=== PATIENT | male | born 1970 | race Caucasian/White ===

== ENCOUNTER 2019-03-18 09:11 | Emergency (ER) | payer OTHER ==
[2019-03-18 10:31] LABS: Absolute Lymphocytes (CBC) 1.6 K/uL (0.7-4.9); Absolute Monocytes 0.5 K/uL (0.1-1.3); Absolute Neutrophil 2.9 K/uL (1.8-8.0); Basophils % 0.8 % (0-1.3); Eosinophils % 1.4 % (0-4.4); Lymphocytes % 30.7 % (15.3-44.8); MPV 9.5 fL (7.6-11.3); Monocytes % 10.1 % (3.3-12.3); RBC Red Blood Cell Count 4.66 M/uL (4.33-5.43)
[2019-03-18 10:41] LABS: Urine Blood NEGATIVE (NEG); Urine Glucose NEGATIVE (NEG); Urine Protein NEGATIVE (NEG)
[2019-03-18] MEDS ORDERED: CEFTRIAXONE/SWI 1gm 1 GM/10 ML SYR ONE (10:49)
[2019-03-18] MEDS ORDERED: NA CHLORIDE 0.9% 500 ML ONE (10:49)
[2019-03-18 10:50] LABS: Bilirubin Total 0.5 mg/dL (0.2-1.0); Potassium 4.2 mmol/L (3.5-5.1); Protein, Total 7.4 g/dL (6.4-8.2)
--- NOTE | 2019-03-18 11:44 | RAD REPORT ---
EXAM DESCRIPTION: CT - Abdomen Pelvis W Contrast - 03/18/2019 11:26 am CLINICAL HISTORY: Abdominal pain, flank pain COMPARISON: CT imaging November 2012 TECHNIQUE: Biphasic, helical CT imaging of the abdomen and pelvis was performed following 100 ml non -ionic IV contrast. No oral contrast administered. All CT scans are performed using dose optimization technique as appropriate and may include automated exposure control or mA/KV adjustment according to patient size. FINDINGS: No suspicious findings in the lung bases. Diffuse fatty infiltration of the liver is again noted. No suspicious liver parenchymal lesions seen. Spleen and pancreas show no acute findings or significant interval changes. Gallbladder and biliary tree are also without suspicious finding. Gallstones can be occult on CT imaging. Symmetric renal function is seen with no hydronephrosis or suspicious renal mass. No pyelonephritis o r acute parenchymal process. No bladder abnormalities. No adrenal abnormalities. No gastric dilatation or gastric wall thickening. No dilated large or small bowel. No appendicitis fi ndings. There is moderate retained stool volume throughout the colon. No acute GI process seen. No free air, free fluid or inflammatory stranding. No mass or bulky lymphadenopathy. Fat filled ri ght inguinal hernia present with no edema or congestion of the herniated fat. Fat extends into the or igin of the left inguinal canal. Hernia findings are stable. No suspicious bony findings. IMPRESSION: Diffuse fatty infiltration of the liver similar to comparison. Moderate stool volume throughout the colon with no acute GI process identifiable. No acute CT abdomen or pelvis finding. No focal abnormality to explain flank pain.
--- NOTE | 2019-03-18 13:02 | ER ---
Nurse's Notes [facility] Name: Clark Reyes Jr Age: 48 yrs Sex: Male : 1970 Arrival Date: 03/18/2019 Time: 09:15 Bed 24 Private MD: Ileana Fischer H Diagnosis: Dysuria;Constipation Presentation: 03/18 09:31 Presenting complaint: Patient states: back pian X 2 months, hx of kidney cysts, has iw been having difficulty urinating. Transition of care: patient was not received from another setting of care. Onset of symptoms was January 2019. Risk Assessment: Do you want to hurt yourself or someone else? Patient reports no desire to harm self or others. Initial Sepsis Screen: Does the patient meet any 2 criteria? No. Patient's initial sepsis screen is negative. Does the patient have a suspected source of infection? No. Patient's initial sepsis screen is negative. Care prior to arrival: None. 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 - Social history:: Smoking status: Patient/guardian denies using tobacco. - Ebola Screening: : Patient negative for fever greater than or equal to 101.5 degrees Fahrenheit, and additional compatible Ebola Virus Disease symptoms Patient denies travel to an Ebola-affected area in the 21 days before illness onset. - Family history:: not pertinent. Screenin:06 Abuse screen: Denies threats or abuse. Nutritional screening: No deficits noted. ae4 Tuberculosis screening: No symptoms or risk factors identified. Fall Risk None identified. Assessment: 10:00 General: Appears in no apparent distress. uncomfortable, Behavior is cooperative, ae4 anxious. Pain: Complains of pain in left low back, left mid back, right mid back and right low back Pain currently is 8 out of 10 on a pain scale. Quality of pain is described as burning. Neuro: Level of Consciousness is awake, alert, obeys commands, Oriented to person, place, time, situation, Appropriate for age. Cardiovascular: Heart tones S1 S2 present Patient's skin is warm and dry. Respiratory: Reports shortness of breath on exertion Airway is patent Respiratory effort is even, unlabored, Respiratory pattern is regular, Breath sounds are clear bilaterally. GI: No signs and/or symptoms were reported involving the gastrointestinal system. : Urine is clear, Reports burning with urination, inability to void, urgency, urinary frequency, blood in urine previously. : Reports Patient states he gets up multiple time at night to urinate with little relief, difficulty initiating urine flow. EENT: wears glasses. Derm: Skin is pale. Musculoskeletal: No signs and/or symptoms reported regarding the musculoskeletal system. 11:58 Reassessment: Patient appears in no apparent distress at this time. Patient and/or ae4 family updated on plan of care and expected duration. Pain level reassessed. 12:26 Reassessment: Patient appears in no apparent distress at this time. Patient and/or ae4 family updated on plan of care and expected duration. Pain level reassessed. Patient denies pain at this time. Vital Signs: 09:41 BP 128 / 87; Pulse 70; Resp 19; Temp 98.4; Pulse Ox 98% on R/A; ae4 10:06 Weight 85.73 kg (R); ae4 10:34 BP 128 / 94; Pulse 62; Resp 14; Pulse Ox 98% on R/A; ae4 11:57 BP 116 / 75; Pulse 61; Resp 16; Pulse Ox 100% on R/A; ae4 12:26 BP 116 / 79; Pulse 62; Resp 15; Pulse Ox 98% on R/A; ae4 ED Course: 09:15 Patient arrived in ED. ag5 09:16 Ileana Fischer DO is Private Physician. ag5 09:31 Padilla Thomson, JAKE is Primary Nurse. ae4 09:34 Triage completed. iw 09:44 Eddie Jacobson MD is Attending Physician. yonis 09:44 Alvin Jaramillo PA is [facility]. jmm 10:00 Placed in gown. Bed in low position. Call light in reach. Side rails up X 1. Adult w/ ae4 patient. conveyor monitor on. Pulse ox on. NIBP on. Warm blanket given. 10:00 Bladder scan completed. 71 mls remaining in bladder. ae4 10:07 Arm band placed on right wrist. ae4 10:31 Inserted saline lock: 20 gauge in right antecubital area, using aseptic technique. ae4 Blood collected. 11:48 Ileana Fischer DO is Referral Physician. yonis 11:48 Fermín Higgins MD is Referral Physician. yonis 12:41 No provider procedures requiring assistance completed. IV discontinued, intact, ae4 bleeding controlled, No redness/swelling at site. Pressure dressing applied. 13:05 CT Abd/Pelvis - IV Contrast Only: renal program In Process Unspecified. EDMS Administered Medications: 10:33 Drug: NS 0.9% 500 ml Route: IV; Rate: bolus; Site: right antecubital; ae4 11:30 Follow up: IV Status: Completed infusion ae4 10:34 Drug: Rocephin - (cefTRIAXone) 1 grams Route: IVPB; Infused Over: 30 mins; Site: right ae4 antecubital; 12:42 Follow up: IV Status: Completed infusion ae4 Outcome: 11:48 Discharge ordered by . yonis 12:41 Discharged to home ambulatory, with significant other. ae4 12:41 Condition: stable 12:41 Discharge instructions given to patient, Instructed on discharge instructions, follow up and referral plans. medication usage, Demonstrated understanding of instructions, Prescriptions given X 3. 12:42 Patient left the ED. ae4 Signatures: Dispatcher [employer] EDMS Eddie Jacobson MD MD cha Mickail, Joel, PA PA jmm Williams, Irene, RN Kayleigh Guzman [facility] Padilla Thomson RN RN ae4
--- NOTE | 2019-03-18 13:02 | EDPHYS ---
Physician Documentation [facility] Name: Clark Reyes Jr Age: 48 yrs Sex: Male : 1970 Arrival Date: 03/18/2019 Time: 09:15 Bed 24 Private MD: Ileana Fischer H ED Physician Eddie Jacobson HPI: 03/18 10:17 This 48 yrs old Male presents to ER via Ambulatory with complaints of Low yonis Back Pain, Urinary Problem. 10:17 The patient presents with pain that is acute, with no known mechanism of injury. The yonis symptoms are located in the low back, left low back, left mid back, right mid back and right low back. The pain does not radiate. The problem was sustained from unknown cause. Onset: The symptoms/episode began/occurred 3 day(s) ago. Modifying factors: The patient symptoms are alleviated by nothing, the patient symptoms are aggravated by any movement. Associated signs and symptoms: The patient has no apparent associated signs or symptoms. Severity of symptoms: At their worst the symptoms were. The patient has experienced similar episodes in the past, a few times. Historical: - Allergies: 09:59 No Known Allergies; ae4 - Home Meds: :59 Valium Oral [Active]; Baclofen Oral [Active]; Tylenol #4 Oral [Active]; ae4 - PMHx: :59 masses found on kidneys; neuropathy; ae4 - Immunization history:: Adult Immunizations up to date, Flu vaccine is not up to date. - Social history:: Smoking status: Patient/guardian denies using tobacco. - Ebola Screening: : Patient negative for fever greater than or equal to 101.5 degrees Fahrenheit, and additional compatible Ebola Virus Disease symptoms Patient denies travel to an Ebola-affected area in the 21 days before illness onset. - Family history:: not pertinent. ROS: 10:17 Constitutional: Negative for fever, chills, and weight loss, Eyes: Negative for injury, yonis pain, redness, and discharge, ENT: Negative for injury, pain, and discharge, Neck: Negative for injury, pain, and swelling, Cardiovascular: Negative for chest pain, palpitations, and edema, Respiratory: Negative for shortness of breath, cough, wheezing, and pleuritic chest pain, Abdomen/GI: Negative for abdominal pain, nausea, vomiting, diarrhea, and constipation, MS/Extremity: Negative for injury and deformity, Skin: Negative for injury, rash, and discoloration, Neuro: Negative for headache, weakness, numbness, tingling, and seizure, Psych: Negative for depression, anxiety, suicide ideation, homicidal ideation, and hallucinations, Allergy/Immunology: Negative for hives, rash, and allergies, Endocrine: Negative for neck swelling, polydipsia, polyuria, polyphagia, and marked weight changes, Hematologic/Lymphatic: Negative for swollen nodes, abnormal bleeding, and unusual bruising. 10:17 Back: Positive for pain at rest, flank pain, bilaterally. 10:17 : Positive for urinary symptoms, urinary frequency, small amounts, burning with urination. Exam: 10:17 Constitutional: This is a well developed, well nourished patient who is awake, alert, yonis and in no acute distress. Head/Face: Normocephalic, atraumatic. Eyes: Pupils equal round and reactive to light, extra-ocular motions intact. Lids and lashes normal. Conjunctiva and sclera are non-icteric and not injected. Cornea within normal limits. Periorbital areas with no swelling, redness, or edema. ENT: Nares patent. No nasal discharge, no septal abnormalities noted. Tympanic membranes are normal and external auditory canals are clear. Oropharynx with no redness, swelling, or masses, exudates, or evidence of obstruction, uvula midline. Mucous membranes moist. Neck: Trachea midline, no thyromegaly or masses palpated, and no cervical lymphadenopathy. Supple, full range of motion without nuchal rigidity, or vertebral point tenderness. No Meningismus. Chest/axilla: Normal chest wall appearance and motion. Nontender with no deformity. No lesions are appreciated. Cardiovascular: Regular rate and rhythm with a normal S1 and S2. No gallops, murmurs, or rubs. Normal PMI, no JVD. No pulse deficits. Respiratory: Lungs have equal breath sounds bilaterally, clear to auscultation and percussion. No rales, rhonchi or wheezes noted. No increased work of breathing, no retractions or nasal flaring. Abdomen/GI: Soft, non-tender, with normal bowel sounds. No distension or tympany. No guarding or rebound. No evidence of tenderness throughout. Back: No spinal tenderness. No costovertebral tenderness. Full range of motion. Male : Normal genitalia with no discharge or lesions. Skin: Warm, dry with normal turgor. Normal color with no rashes, no lesions, and no evidence of cellulitis. MS/ Extremity: Pulses equal, no cyanosis. Neurovascular intact. Full, normal range of motion. Neuro: Awake and alert, GCS 15, oriented to person, place, time, and situation. Cranial nerves II-XII grossly intact. Motor strength 5/5 in all extremities. Sensory grossly intact. Cerebellar exam normal. Normal gait. Psych: Awake, alert, with orientation to person, place and time. Behavior, mood, and affect are within normal limits. Vital Signs: 09:41 BP 128 / 87; Pulse 70; Resp 19; Temp 98.4; Pulse Ox 98% on R/A; ae4 10:06 Weight 85.73 kg (R); ae4 10:34 BP 128 / 94; Pulse 62; Resp 14; Pulse Ox 98% on R/A; ae4 11:57 BP 116 / 75; Pulse 61; Resp 16; Pulse Ox 100% on R/A; ae4 12:26 BP 116 / 79; Pulse 62; Resp 15; Pulse Ox 98% on R/A; ae4 MDM: 09:44 Patient medically screened. [facility] 10:51 Data reviewed: vital signs, nurses notes, lab test result(s), radiologic studies, CT [facility] scan. 03/18 09:59 Order name: Urine Dipstick--Ancillary (enter results); Complete Time: 11:41 03/18 10:17 Order name: CBC with Diff [facility] 03/18 10:17 Order name: Comprehensive Metabolic Panel [facility] 03/18 10:17 Order name: CT Abd/Pelvis - IV Contrast Only: renal program [facility] 03/18 10:17 Order name: Urine Culture [facility] 03/18 10:51 Order name: Urine Dipstick-Ancillary (obtain specimen); Complete Time: 11:[address] [facility] Administered Medications: 10:33 Drug: NS 0.9% 500 ml Route: IV; Rate: bolus; Site: right antecubital; ae4 11:30 Follow up: IV Status: Completed infusion ae4 10:34 Drug: Rocephin - (cefTRIAXone) 1 grams Route: IVPB; Infused Over: 30 mins; Site: right ae4 antecubital; 12:42 Follow up: IV Status: Completed infusion ae4 Disposition: 03/18/19 11:48 Discharged to Home. Impression: Dysuria, Constipation. - Condition is Stable. - Discharge Instructions: Constipation, Adult, Dysuria, Constipation, Adult, [id number]. - Prescriptions for Flomax 0.4 mg Oral Capsule, Sust. Release 24 hr - take 1 capsule by ORAL route once daily 1/2 hour following the same meal each day; 20 capsule. Cipro 500 mg Oral Tablet - take 1 tablet by ORAL route every 12 hours for 10 days; 20 tablet. Miralax 17 gram/dose Oral - take 1 packet by ORAL route every 12 hours dilute powder in 8 ounces of water or juice; 20 packet. - Medication Reconciliation Form, Thank You Letter, Antibiotic Education, Prescription Opioid Use form. - Follow up: Ileana Fischer; When: 2 - 3 days; Reason: Recheck today's complaints, Continuance of care, Re-evaluation by your physician. Follow up: Fermín Higgins; When: 2 - 3 days; Reason: Recheck today's complaints, Continuance of care, Re-evaluation by your physician. - Problem is new. - Symptoms have improved. Signatures: Dispatcher [employer] EDMS Eddie Jacobson MD MD cha Elliott, Andrea RN RN ae4 Corrections: (The following items were deleted from the chart) 12:42 11:48 03/18/2019 11:48 Discharged to Home. Impression: Dysuria; Constipation. Condition ae4 is Stable. Discharge Instructions: Dysuria. Prescriptions for Flomax 0.4 mg Oral Capsule, Sust. Release 24 hr - take 1 capsule by ORAL route once daily 1/2 hour following the same meal each day; 20 capsule, Cipro 500 mg Oral Tablet - take 1 tablet by ORAL route every 12 hours for 10 days; 20 tablet. and Forms are Medication Reconciliation Form, Thank You Letter, Antibiotic Education, Prescription Opioid Use. Follow up: Ileana Fischer; When: 2 - 3 days; Reason: Recheck today's complaints, Continuance of care, Re-evaluation by your physician. Follow up: Fermín Higgins; When: 2 - 3 days; Reason: Recheck today's complaints, Continuance of care, Re-evaluation by your physician. Problem is new. Symptoms have improved. yonis
[2019-03-18 18:47] VITALS: BP 116/79; O2SAT 98
[2019-03-18 19:03] VITALS: TEMP 98.7
== END 2019-03-18 12:42 | disposition home or self-care (01) ==
LOC: ER 09:11
DX: K59.00 Constipation, unspecified (principal)
CPT/HCPCS: 36415; 74177; 80053; 81003; 85025; 87086; 87088; 96365; 96366; 99284; J0696; Q9967

== ENCOUNTER 2020-04-06 08:49 | Day surgery (SDC) | payer BC ==
--- NOTE | 2020-04-03 13:43 | RAD REPORT ---
EXAM DESCRIPTION: Queta Mccain (2 Views)04/03/2020 1:21 pm CLINICAL HISTORY: Chest pain COMPARISON: 2014 FINDINGS: The lungs appear clear of acute infiltrate. The heart is normal size IMPRESSION: No acute abnormalities displayed
[2020-04-03 14:03] LABS: Potassium 4.4 mmol/L (3.5-5.1)
[2020-04-03 14:11] LABS: Absolute Lymphocytes (CBC) 1.6 K/uL (0.7-4.9); Basophils % 0.6 % (0-1.3); Hematocrit 39.1 % (39.6-49.0); Lymphocytes % 27.8 % (15.3-44.8); MPV 10.3 fL (7.6-11.3); RBC Red Blood Cell Count 4.37 M/uL (4.33-5.43)
[2020-04-03 14:20] LABS: Protime INR 0.97
[2020-04-06] MEDS ORDERED: NA CHLORIDE 0.9% 500 ML ONE (09:01)
[2020-04-06] MEDS ORDERED: HEPA 1000U/500MLS 2,000 UNIT/1,000 ML BAG IV ONE (10:52)
[2020-04-06] MEDS ORDERED: HEPARIN 5000 UNIT/ML 1 ML VIAL ONE (10:54)
[2020-04-06] MEDS ORDERED: FENTANYL CITR 100 MCG/2 ML ONE (10:55)
[2020-04-06] MEDS ORDERED: NICARDIPINE HCL 25 MG/10 ML IV ONE (10:55)
[2020-04-06] MEDS ORDERED: ATROPINE SULF 1 MG/10 ML SYR IV ONE (10:55)
[2020-04-06] MEDS ORDERED: MIDAZOLAM HCL 2 MG/2 ML INJ ONE ×2 (10:55→11:36)
[2020-04-06 13:04] VITALS: O2SAT 99
[2020-04-06 13:44] VITALS: BP 120/68; TEMP 97.5
--- NOTE | 2020-04-06 22:50 | OP ---
Date of Procedure: 04/06/2020 Surgeon: RAJNI ABDALLA Procedure Performed: Selective coronary angiogram. Access: Right radial artery 6-Monegasque closed with TR band. Indications: Unstable angina. Total Sedation Time: 15 minutes. Complications: None. Bleeding: Less than 5 mL. Description Of Procedure: After risks, benefits, and alternatives were explained to the patient, efren rey signed informed consent and was brought into the cardiac catheterization laboratory, prepped and draped in usual sterile fashion. We used fentanyl and Versed in incremental doses to achieve adequa te moderate sedation. Then, we used the pediatric micropuncture kit to access right radial artery an d then inserted a 6-Monegasque slender sheath. Subsequently, we took a 5-Monegasque Worley catheter into the aortic root over the J-wire, engaged the left main coronary artery, took standard views and then enga ged the right coronary artery with the same catheter and took standard views. Then, we took a cathet er and wire out and the sheath was removed. TR band was placed with good hemostasis. Findings: Normal coronary arteries. No coronary artery disease was found. Recommendations: 1.Cardiac risk factor modification and management. 2.Discharge home once discharge criteria is met. SR/MODL Voice ID: [id number] Report ID: [id number]
== END 2020-04-06 13:56 | disposition home or self-care (01) ==
LOC: CCL 08:49
PROVIDERS: ATTEND Internal Medicine
DX: I20.0 Unstable angina (principal); R06.00 Dyspnea, unspecified; J45.909 Unspecified asthma, uncomplicated; Z88.6 Allergy status to analgesic agent; Z82.49 Family history of ischemic heart disease and other diseases of the circulatory system; Z11.59 Encounter for screening for other viral diseases
CPT/HCPCS: 85025; 80048; 36415; 85610; 85730; 71046; 93454; U0002; C1893; J1644; J2250 ×2; J3010; J7040

== ENCOUNTER 2020-10-28 00:56 | Emergency (ER) | payer BC ==
--- NOTE | 2020-10-28 02:40 | ER ---
Nurse's Notes [facility] Name: Clark Reyes Jr Age: 50 yrs Sex: Male : 1970 Arrival Date: 10/28/2020 Time: 01:01 Bed 16 Private MD: Ileana Fischer H Diagnosis: Muscle spasm of back Presentation: 10/28 01:10 Chief complaint: Patient states: back pain for 3 days now. I've been tested positive rr5 for COVID last 08-19-20 then 3 weeks ago my covid test result was negative. I went to [facility] they said I have pneumonia antibiotic and steroid prescribed and finish the course. but after that i feel so bad after 2 days.denies cough or fever. 01:10 Coronavirus screen: Client denies travel out of the [place] in the last 14 days. shortness rr5 of breath, Client presents with at least one sign or symptom that may indicate coronavirus-19. Standard/surgical mask placed on the client. Provider contacted for isolation considerations. Ebola Screen: Patient negative for fever greater than or equal to 101.5 degrees Fahrenheit, and additional compatible Ebola Virus Disease symptoms Patient denies exposure to infectious person. Patient denies travel to an Ebola-affected area in the 21 days before illness onset. Initial Sepsis Screen: Does the patient meet any 2 criteria? HR > 90 bpm. Does the patient have a suspected source of infection? Yes: Productive cough/pneumonia. Risk Assessment: Do you want to hurt yourself or someone else? Patient reports no desire to harm self or others. Onset of symptoms was October 25, 2020. 01:10 Method Of Arrival: Ambulatory rr5 01:10 Acuity: ANH 3 rr5 Triage Assessment: 01:10 Respiratory: Reports pain at the back the patient has mild shortness of breath. rr5 Historical: - Allergies: 01:18 No Known Allergies; rr5 - Home Meds: 01:18 Baclofen Oral [Active]; rr5 - PMHx: 01:18 masses found on kidneys; neuropathy; rr5 01:18 covid; rr5 - PSHx: 01:18 None; rr5 - Immunization history:: Adult Immunizations up to date. - Social history:: Smoking status: unknown Patient/guardian denies using alcohol, street drugs, tobacco products. - Family history:: not pertinent. Screenin:19 Abuse screen: Denies threats or abuse. Denies injuries from another. Nutritional rr5 screening: No deficits noted. Tuberculosis screening: No symptoms or risk factors identified. Fall Risk None identified. Total Mcdonald Fall Scale indicates No Risk (0-24 pts). Assessment: 01:10 General: Appears in no apparent distress. uncomfortable, Behavior is calm, cooperative, rr5 agitated. Pain: Complains of pain in back Pain currently is 8 out of 10 on a pain scale. Quality of pain is described as stabbing, Pain began gradually, Is intermittent. Neuro: Level of Consciousness is awake, alert, obeys commands, Oriented to person, place, time. Cardiovascular: Capillary refill < 3 seconds Patient's skin is warm and dry. Rhythm is. Respiratory: Airway is patent Respiratory effort is even, unlabored, Respiratory pattern is regular, symmetrical, GI: Abdomen is round. : No signs and/or symptoms were reported regarding the genitourinary system. EENT: No signs and/or symptoms were reported regarding the EENT system. Derm: Skin is intact, is healthy with good turgor, Skin temperature is warm. Musculoskeletal: Circulation, motion, and sensation intact. Capillary refill < 3 seconds. 02:05 Reassessment: Patient appears in no apparent distress at this time. Patient is alert, rr5 oriented x 3, equal unlabored respirations, skin warm/dry/pink. 02:45 Reassessment: Patient appears in no apparent distress at this time. Patient is alert, rr5 oriented x 3, equal unlabored respirations, skin warm/dry/pink. discharge instruction given and explained without complaints made. Vital Signs: 01:10 BP 139 / 96; Pulse 103; Resp 19; Temp 98.7; Pulse Ox 98% ; Weight 81.65 kg; Height 5 rr5 ft. 4 in. (162.56 cm); Pain 8/10; 02:05 BP 131 / 85; Pulse 88; Resp 16; Pulse Ox 98% ; rr5 01:10 Body Mass Index 30.90 (81.65 kg, 162.56 cm) rr5 ED Course: 01:01 Patient arrived in ED. am2 01:02 Ileana Fischer DO is Private Physician. am2 01:09 Ricky Cunha MD is Attending Physician. ma2 01:13 Sekou Oviedo, RN is Primary Nurse. rr5 01:18 Triage completed. rr5 01:19 Arm band placed on right wrist. rr5 01:19 Patient has correct armband on for positive identification. Placed in gown. Bed in low rr5 position. Call light in reach. Pulse ox on. NIBP on. 01:55 X-ray(s) taken. rr5 02:02 COVID swab sent to lab. rr5 02:11 Chest Single View XRAY In Process Unspecified. EDMS 02:46 No provider procedures requiring assistance completed. Patient did not have IV access rr5 during this emergency room visit. Administered Medications: No medications were administered Outcome: 02:40 Discharge ordered by . ma2 02:46 Discharged to home ambulatory. rr5 02:46 Condition: stable 02:46 Discharge instructions given to patient, Instructed on discharge instructions, follow up and referral plans. medication usage, Demonstrated understanding of instructions, follow-up care, medications, Prescriptions given X 1. 02:47 Patient left the ED. rr5 Addendum: 10/30/2020 09:26 Addendum: COVID-19 Result: Positive result giiven to ED physician to notify pt. s v Physician left voice mail for pt to call the ED back. 09:48 Addendum: COVID-19 Result: Positive result giiven to ED physician to notify pt. s v Physician: Delfino Ruff MD Physician was able to contact pt and pt was notified of positive COVID-19 swab result. Physician answered pt questions. Signatures: Dispatcher [employer] [facility] Edyta Jackson, RN Nicole Fontenot [facility] Ricky Cunha MD MD [facility] Sekou Oviedo, RN RN rr5
--- NOTE | 2020-10-28 02:40 | EDPHYS ---
Physician Documentation [facility] Name: Clark Reyes Jr Age: 50 yrs Sex: Male : 1970 Arrival Date: 10/28/2020 Time: 01:01 Bed 16 Private MD: Ileana Fischer H ED Physician Ricky Cunha HPI: 10/28 02:39 This 50 yrs old Male presents to ER via Ambulatory with complaints of ma2 Shortness Of Breath, Back Pain. 02:39 Onset: The symptoms/episode began/occurred gradually, 6 week(s) ago. Associated signs ma2 and symptoms: Pertinent positives: non-productive cough, Pertinent negatives: productive cough, dizziness, hemoptysis, loss of consciousness. Severity of symptoms: At their worst the symptoms were mild in the emergency department the symptoms are unchanged. The patient has experienced similar episodes in the past. has been diagnosed with covid. 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 - Social history:: Smoking status: unknown Patient/guardian denies using alcohol, street drugs, tobacco products. - Family history:: not pertinent. ROS: 02:39 Constitutional: Negative for fever, chills, and weight loss. ma2 02:39 All other systems are negative. Exam: 02:39 Constitutional: This is a well developed, well nourished patient who is awake, alert, ma2 and in no acute distress. Neck: Trachea midline, no thyromegaly or masses palpated, and no cervical lymphadenopathy. Supple, full range of motion without nuchal rigidity, or vertebral point tenderness. No Meningismus. Chest/axilla: Normal chest wall appearance and motion. Nontender with no deformity. No lesions are appreciated. Cardiovascular: Regular rate and rhythm with a normal S1 and S2. No gallops, murmurs, or rubs. Normal PMI, no JVD. No pulse deficits. Respiratory: Lungs have equal breath sounds bilaterally, clear to auscultation and percussion. No rales, rhonchi or wheezes noted. No increased work of breathing, no retractions or nasal flaring. Abdomen/GI: Soft, non-tender, with normal bowel sounds. No distension or tympany. No guarding or rebound. No evidence of tenderness throughout. Back: No spinal tenderness. No costovertebral tenderness. Full range of motion. MS/ Extremity: Pulses equal, no cyanosis. Neurovascular intact. Full, normal range of motion. Neuro: Awake and alert, GCS 15, oriented to person, place, time, and situation. Cranial nerves II-XII grossly intact. Motor strength 5/5 in all extremities. Sensory grossly intact. Cerebellar exam normal. Normal gait. Vital Signs: 01:10 BP 139 / 96; Pulse 103; Resp 19; Temp 98.7; Pulse Ox 98% ; Weight 81.65 kg; Height 5 rr5 ft. 4 in. (162.56 cm); Pain 8/10; 02:05 BP 131 / 85; Pulse 88; Resp 16; Pulse Ox 98% ; rr5 01:10 Body Mass Index 30.90 (81.65 kg, 162.56 cm) rr5 MDM: 01:09 Patient medically screened. ma2 02:39 Differential diagnosis: Bronchitis pneumonia, reactive airway disease. Data reviewed: ky2 vital signs, nurses notes. Counseling: I had a detailed discussion with the patient and/or guardian regarding: the historical points, exam findings, and any diagnostic results supporting the discharge/admit diagnosis, the presence of at least one elevated blood pressure reading (>120/80) during this emergency department visit, the need for outpatient follow up. 10/28 01:27 Order name: COVID-19 ky2 10/28 01:27 Order name: Chest Single View XRAY ky2 Administered Medications: No medications were administered Disposition: 10/28/20 02:40 Discharged to Home. Impression: Muscle spasm of back. - Condition is Stable. - Discharge Instructions: Muscle Cramps and Spasms. - Prescriptions for Cyclobenzaprine 10 mg Oral Tablet - take 1 tablet by ORAL route every 8 hours As needed; 30 tablet. - Medication Reconciliation Form, Thank You Letter, Antibiotic Education, Prescription Opioid Use form. - Follow up: Private Physician; When: Tomorrow; Reason: Continuance of care. Signatures: Dispatcher [employer] EDMS Adan Cunhad, MD MD ma2 Sekou Oviedo RN RN rr5 Corrections: (The following items were deleted from the chart) 02:47 02:40 10/28/2020 02:40 Discharged to Home. Impression: Muscle spasm of back. Condition rr5 is Stable. Forms are Medication Reconciliation Form, Thank You Letter, Antibiotic Education, Prescription Opioid Use. Follow up: Private Physician; When: Tomorrow; Reason: Continuance of care. collin
[2020-10-28 02:51] VITALS: TEMP 98.7; O2SAT 98
[2020-10-28 02:52] VITALS: BP 131/85
--- NOTE | 2020-10-28 08:14 | RAD REPORT ---
EXAM DESCRIPTION: Queta Single View10/28/2020 2:11 am CLINICAL HISTORY: Congestion COMPARISON: March 2020 FINDINGS: The lungs are mildly hazy. Heart is normal size IMPRESSION: Lungs are mildly hazy. It is uncertain whether this represents mild infiltrates or confl uence of normal structures/soft tissue. If clinically indicated further evaluation with PA and latera l chest series could be obtained
== END 2020-10-28 02:47 | disposition home or self-care (01) ==
LOC: ER 00:56
DX: U07.1 COVID-19 (principal); Z86.16 Personal history of COVID-19
CPT/HCPCS: 71045; 99283; U0002

== ENCOUNTER 2020-11-17 10:31 | Emergency (ER) | payer BC ==
[2020-11-17] MEDS ORDERED: IPRATROPIUM BROM 0.5MG/2.5ML ONE (11:25)
[2020-11-17] MEDS ORDERED: METHYLPREDNISOLONE 125 MG INJ ONE (11:25)
[2020-11-17] MEDS ORDERED: ALBUTEROL 2.5 MG/3 ML NEB SOL ONE (11:25)
[2020-11-17 11:26] LABS: Protime INR 0.95
[2020-11-17 11:28] LABS: Absolute Lymphocytes (CBC) 2.1 K/uL (0.7-4.9); Basophils % 1.3 % (0-1.3); Hematocrit 37.7 % (39.6-49.0); Lymphocytes % 33.1 % (15.3-44.8); MPV 9.5 fL (7.6-11.3); RBC Red Blood Cell Count 4.26 M/uL (4.33-5.43)
[2020-11-17 11:34] LABS: ALT/SGPT 41 U/L (12-78); AST/SGOT 24 U/L (15-37); Albumin 3.8 g/dL (3.4-5.0); Alkaline Phosphatase 65 U/L (45-117); BUN Blood Urea Nitrogen 16 mg/dL (7-18); Bicarbonate 26 mmol/L (21-32); Bilirubin Direct 0.1 mg/dL (0-0.2); Bilirubin Total 0.4 mg/dL (0.2-1.0); C-Reactive Protein 6.07 mg/L (<3.00); Ferritin 59.7 ng/mL (26-388); Glucose Level 106 mg/dL (74-106); Lipase 138 U/L (73-393); Potassium 3.9 mmol/L (3.5-5.1); Protein, Total 7.3 g/dL (6.4-8.2); Sodium Level 140 mmol/L (136-145); Troponin (Emerg Dept Use Only) < 0.02 ng/mL (0.0-0.045)
--- NOTE | 2020-11-17 11:54 | RAD REPORT ---
EXAM DESCRIPTION: Queta Single View11/17/2020 11:12 am CLINICAL HISTORY: Shortness of breath COMPARISON: October 2020 FINDINGS: Lungs are mildly hazy. The heart is normal size IMPRESSION: Lungs are mildly hazy probably a mild pneumonia
[2020-11-17 12:45] LABS: SARS-COV-2 RT PCR POSITIVE (NEGATIVE)
--- NOTE | 2020-11-17 13:27 | ER ---
Nurse's Notes [facility] Name: Clark Reyes Jr Age: 50 yrs Sex: Male : 1970 Arrival Date: 11/17/2020 Time: 10:34 Bed 13 Private MD: Ileana Fischer H Diagnosis: Pneumonia due to SARS-associated coronavirus Presentation: 11/17 10:42 Chief complaint: Patient states: "I was COVID + last month and still felling short of hb breath." Pt reports using albuterol every 30 mins and home O2 with no relief. Coronavirus screen: Client presents with at least one sign or symptom that may indicate coronavirus-19. Standard/surgical mask placed on the client. Provider contacted for isolation considerations. Ebola Screen: No symptoms or risks identified at this time. Initial Sepsis Screen: Does the patient meet any 2 criteria? RR > 20 per min. No. Patient's initial sepsis screen is negative. Does the patient have a suspected source of infection? No. Patient's initial sepsis screen is negative. Risk Assessment: Do you want to hurt yourself or someone else? Patient reports no desire to harm self or others. Onset of symptoms was November 17, 2020. 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 - Social history:: Smoking status: Patient denies any tobacco usage or history of. Screenin:45 Abuse screen: Denies threats or abuse. Denies injuries from another. Nutritional hb screening: No deficits noted. Tuberculosis screening: No symptoms or risk factors identified. Fall Risk None identified. Assessment: 11:05 General: Appears ill, Behavior is calm, cooperative, appropriate for age. Pain: Denies ll1 pain. Neuro: No deficits noted. Cardiovascular: No deficits noted. Respiratory: Reports shortness of breath cough that is Airway is patent Trachea midline Respiratory effort is even, labored, Respiratory pattern is symmetrical, tachypnea Breath sounds are coarse bilaterally. the patient has mild shortness of breath. GI: Abdomen is flat, Bowel sounds present X 4 quads. Abd is soft and non tender X 4 quads. Reports nausea. Musculoskeletal: Circulation, motion, and sensation intact. Capillary refill < 3 seconds, Range of motion: intact in all extremities, Reports body aches. 12:15 Reassessment: Patient appears in no apparent distress at this time. Patient and/or vg1 family updated on plan of care and expected duration. Pain level reassessed. Patient is alert, oriented x 3, equal unlabored respirations, skin warm/dry/pink. States back pain of 8/10. Stated feeling better after breathing treatment. Provider notified. Patient states feeling better. 13:18 Reassessment: Patient appears in no apparent distress at this time. Patient and/or vg1 family updated on plan of care and expected duration. Pain level reassessed. Patient is alert, oriented x 3, equal unlabored respirations, skin warm/dry/pink. 13:33 Reassessment: Patient up for d/c. Awaiting for providers disposition. vg1 Vital Signs: 10:42 BP 136 / 88; Pulse 87; Resp 36; Temp 98.5; Pulse Ox 100% on R/A; Pain 7/10; hb 11:01 Resp 26; ll1 12:16 BP 119 / 71; Pulse 87; Resp 18; Pulse Ox 100% on R/A; vg1 13:00 BP 118 / 82; Pulse 88; Resp 18; Pulse Ox 98% on R/A; vg1 ED Course: 10:34 Patient arrived in ED. ds1 10:34 Ileana Fischer DO is Private Physician. ds1 10:38 Arsen Dudley NP is PHCP. pm1 10:38 Eddie Jacobson MD is Attending Physician. pm1 10:44 Triage completed. hb 10:44 Arm band placed on. hb 10:45 Patient has correct armband on for positive identification. Bed in low position. Call hb light in reach. 10:47 Vanessa Real, JAKE is Primary Nurse. ll1 11:05 Inserted saline lock: 22 gauge in left antecubital area, using aseptic technique. Blood ll1 collected. 11:12 CXR XRAY In Process Unspecified. EDMS 12:00 EKG done, by ED staff, reviewed by Arsen Dudley NP. dh3 12:02 Primary Nurse role handed off by Vanessa Real RN vg1 12:02 Eloisa Osorio, RN is Primary Nurse. vg1 13:26 Ileana Fischer DO is Referral Physician. pm1 13:48 IV discontinued, intact, bleeding controlled, No redness/swelling at site. Pressure ll1 dressing applied. 13:53 No provider procedures requiring assistance completed. vg1 Administered Medications: 11:15 Drug: SOLU-Medrol 125 mg Route: IVP; Site: left antecubital; ll1 12:30 Follow up: Response: No adverse reaction vg1 11:18 Drug: Albuterol - atroVENT (3:1) (2.5 mg - 0.5 mg) 3 ml Route: Nebulizer; ll1 12:30 Follow up: Response: No adverse reaction vg1 Outcome: 13:26 Discharge ordered by MD. pm1 13:53 Discharged to home ambulatory. vg1 13:53 Condition: stable 13:53 Discharge instructions given to patient, Instructed on discharge instructions, follow up and referral plans. medication usage, Demonstrated understanding of instructions, follow-up care, medications, Prescriptions given X 3. 13:53 Patient left the ED. vg1 Signatures: Dispatcher [employer] EDOK KingShima ds1 Arsen Dudley NP [employer]ONSTRATOR [employer] pm1 Neli Dunn RN RN hb Herrera, Deanna [facility] Eloisa Osorio RN RN vg1 Vanessa Real RN RN 1
--- NOTE | 2020-11-17 13:27 | EDPHYS ---
Physician Documentation [facility] Name: Clark Reyes Jr Age: 50 yrs Sex: Male : 1970 Arrival Date: 11/17/2020 Time: 10:34 Bed 13 Private MD: Ileana Fischer H ED Physician Eddie Jacobson HPI: 11/17 10:52 This 50 yrs old Male presents to ER via Ambulatory with complaints of Covid + pm1 Diff Breathing. 10:52 The patient has shortness of breath at rest, and the patient has a history of covid pm1 positive diagnosis 3 weeks ago. Onset: The symptoms/episode began/occurred 3 week(s) ago. Duration: The symptoms improved and got worse the past three days. 10:52 The patient's shortness of breath is aggravated by walking, Patient has been able to pm1 walk around his block daily. Associated signs and symptoms: Pertinent positives: non-productive cough, Pertinent negatives: chest pain, fever, nausea, vomiting. Severity of symptoms: in the emergency department the symptoms are worse. The patient has not experienced similar symptoms in the past. 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 - Social history:: Smoking status: Patient denies any tobacco usage or history of. ROS: 10:52 Constitutional: Negative for fever, chills, and weight loss, ENT: Negative for injury, pm1 pain, and discharge, Neck: Negative for injury, pain, and swelling, Cardiovascular: Negative for chest pain, palpitations, and edema. 10:52 Abdomen/GI: Negative for abdominal pain, nausea, vomiting, diarrhea, and constipation, Back: Negative for injury and pain, MS/Extremity: Negative for injury and deformity, Skin: Negative for injury, rash, and discoloration, Neuro: Negative for headache, weakness, numbness, tingling, and seizure. 10:52 Respiratory: Positive for cough, shortness of breath, Negative for sputum production, wheezing. Exam: 10:52 Constitutional: This is a well developed, well nourished patient who is awake, alert, pm1 and in no acute distress. Head/Face: Normocephalic, atraumatic. 10:52 Cardiovascular: Exam negative for acute changes, Rate: normal, Rhythm: regular, Pulses: no pulse deficits are appreciated, Edema: is not appreciated. 10:52 Respiratory: mild respiratory distress is noted, Respirations: tachypnea, that is mild, Breath sounds: rhonchi, that are mild, are heard diffusely. 10:52 Back: No spinal tenderness. No costovertebral tenderness. Full range of motion. pm1 Skin: Warm, dry with normal turgor. Normal color with no rashes, no lesions, and no evidence of cellulitis. MS/ Extremity: Pulses equal, no cyanosis. Neurovascular intact. Full, normal range of motion. 10:52 Abdomen/GI: Exam negative for acute changes, Inspection: abdomen appears normal, Palpation: abdomen is soft and non-tender, in all quadrants. 10:52 Neuro: Exam negative for Orientation: is normal, Mentation: is normal, Motor: is normal, moves all fours. Vital Signs: 10:42 BP 136 / 88; Pulse 87; Resp 36; Temp 98.5; Pulse Ox 100% on R/A; Pain 7/10; hb 11:01 Resp 26; ll1 12:16 BP 119 / 71; Pulse 87; Resp 18; Pulse Ox 100% on R/A; vg1 13:00 BP 118 / 82; Pulse 88; Resp 18; Pulse Ox 98% on R/A; vg1 MDM: 10:38 Patient medically screened. [facility] 13:22 Physician consultation: MichelleMarLukas Fischer DO was called at 13:22, was contacted at 13:22, pm1 regarding patient's condition, Agrees with plan of care for discharge with abx, steroids, and ivermectin. Agrees that CT chest is not necessary since chest x-ray is effective for diagnosis and D-dimer negative. Patient was told by his work that he needed a CTchest. 13:22 Data reviewed: vital signs. pm1 13:22 Counseling: I had a detailed discussion with the patient and/or guardian regarding: the pm1 historical points, exam findings, and any diagnostic results supporting the discharge/admit diagnosis, lab results, radiology results, the need for outpatient follow up, to return to the emergency department if symptoms worsen or persist or if there are any questions or concerns that arise at home. 11/17 10:52 Order name: Blood Culture Adult (2) pm11/17 10:52 Order name: BMP pm11/17 10:52 Order name: C-Reactive Protein pm11/17 10:52 Order name: CBC with Diff pm11/17 10:52 Order name: D-Dimer pm11/17 10:52 Order name: Ferritin pm11/17 10:52 Order name: Flu pm11/17 10:52 Order name: Lactate pm11/17 10:52 Order name: LFT's; Complete Time: 11:41 pm11/17 10:52 Order name: Lipase; Complete Time: 11:41 pm11/17 10:52 Order name: Procalcitonin; Complete Time: 12:04 pm11/17 10:52 Order name: PT-INR; Complete Time: 11:29 pm11/17 10:52 Order name: Ptt, Activated; Complete Time: 11:29 pm11/17 10:52 Order name: Strep; Complete Time: 12:12 pm11/17 10:52 Order name: Troponin (emerg Dept Use Only); Complete Time: 11:41 pm11/17 10:52 Order name: CXR XRAY; Complete Time: 12:04 pm11/17 10:52 Order name: EKG; Complete Time: 10:53 pm11/17 10:53 Order name: Blood Culture EDMS 11/17 10:53 Order name: Basic Metabolic Panel; Complete Time: 11:41 EDMS 11/17 10:53 Order name: C-Reactive Protein; Complete Time: 11:41 EDMS 11/17 10:53 Order name: CBC with Automated Diff; Complete Time: 11:41 EDMS 11/17 10:53 Order name: D-Dimer; Complete Time: 11:29 EDMS 11/17 10:53 Order name: Ferritin; Complete Time: 11:41 EDMS 11/17 10:53 Order name: Influenza Screen (A ED11/17 10:53 Order name: Lactate; Complete Time: 12:04 EDMS 11/17 12:41 Order name: Throat Culture ED11/17 12:46 Order name: COVID-19/FLU A+B; Complete Time: 12:56 EDMS 11/17 10:52 Order name: Cardiac monitoring; Complete Time: 12:03 pm1 11/17 10:52 Order name: Droplet/Contact Precautions; Complete Time: 11:22 pm1 11/17 10:52 Order name: EKG - Nurse/Tech; Complete Time: 12:02 pm1 11/17 10:52 Order name: IV Start; Complete Time: 11:06 pm1 11/17 10:52 Order name: Labs collected and sent; Complete Time: 11:06 pm1 11/17 10:52 Order name: O2 Per Protocol; Complete Time: 11:06 pm1 11/17 10:52 Order name: O2 Sat Monitoring; Complete Time: 11:06 pm1 Administered Medications: 11:15 Drug: SOLU-Medrol 125 mg Route: IVP; Site: left antecubital; 1 12:30 Follow up: Response: No adverse reaction vg1 11:18 Drug: Albuterol - atroVENT (3:1) (2.5 mg - 0.5 mg) 3 ml Route: Nebulizer; 1 12:30 Follow up: Response: No adverse reaction vg1 Disposition: 11/18 07:53 Co-signature as Attending Physician, Eddie Jacobson MD I agree with the assessment and yonis plan of care. Disposition: 11/17/20 13:26 Discharged to Home. Impression: Pneumonia due to SARS-associated coronavirus. - Condition is Stable. - Discharge Instructions: COVID-19. - Prescriptions for ivermectin 3 mg Oral tablet - take 6 tablet by ORAL route as directed 6 tablets on day 1 and then 6 tablets on day 3; 12 tablet. Prednisone 20 mg Oral Tablet - take 3 tablet by ORAL route once daily for 5 days; 15 tablet. Zithromax Z- Gael 250 mg Oral Tablet - take 1 tablet by ORAL route as directed for 5 days Day 1 - take two (2) tablets one time. Day 2, 3, 4 , 5 take one (1) tablet once daily.; 6 tablet. - Medication Reconciliation Form, Thank You Letter, Antibiotic Education, Prescription Opioid Use form. - Follow up: Emergency Department; When: As needed; Reason: Worsening of condition. Follow up: Ileana Fischer DO; When: 2 - 3 days; Reason: Recheck today's complaints, Continuance of care, Re-evaluation by your physician. - Problem is new. - Symptoms have improved. Signatures: Dispatcher [employer] [facility] Eddie Jacobson MD MD cha Marinas, Patrick, STRIP WINDER STRIP WINDER pm1 Neli Dunn, RN RN Eloisa Bell RN RN vg1 Vanessa Real RN RN ll1 Corrections: (The following items were deleted from the chart) 11/17 11:36 10:53 CORONAVIRUS+MR.LAB.BRZ ordered. [facility] 13:53 13:26 11/17/2020 13:26 Discharged to Home. Impression: Pneumonia due to SARS-associated vg1 coronavirus. Condition is Stable. Forms are Medication Reconciliation Form, Thank You Letter, Antibiotic Education, Prescription Opioid Use. Follow up: Emergency Department; When: As needed; Reason: Worsening of condition. Follow up: Ileana Fischer; When: 2 - 3 days; Reason: Recheck today's complaints, Continuance of care, Re-evaluation by your physician. Problem is new. Symptoms have improved. pm1
[2020-11-17 14:22] VITALS: TEMP 98.5
[2020-11-17 14:25] VITALS: BP 118/82; O2SAT 98
--- NOTE | 2020-11-18 11:56 | EKG ---
Test Date: 2020-11-17 Test Time: 11:55:30 Laboratory Administrative Director: ISMA MEASUREMENT RESULTS: Intervals: Rate: 74 CA: 146 QRSD: 96 QT: 368 QTc: 408 [place]: P: 46 CA: 146 QRS: -43 T: 32 INTERPRETIVE STATEMENTS: Normal sinus rhythm Left axis deviation Abnormal ECG Compared to ECG 01/01/2015 20:40:50 Sinus bradycardia no longer present Electronically Signed On 11-18-20 11:53:39 SENIOR SALES REPRESENTATIVE by Adrian Faustin
== END 2020-11-17 13:53 | disposition home or self-care (01) ==
LOC: ER 10:31
DX: U07.1 COVID-19 (principal); J12.82 Pneumonia due to coronavirus disease 2019; Z88.5 Allergy status to narcotic agent
CPT/HCPCS: 87040 ×2; 87070; 85025; 80048; 36415; 85610; 85379; 80076; 87081; 83605; 85730; 84484; 82728; 83690; 84145; 0240U; 86140; 71045; J2930; 93005; 96374; 99284

== ENCOUNTER 2025-01-10 11:20 | Inpatient (IN) | payer BC, OTHER ==
--- NOTE | 2025-01-10 15:43 | ER ---
Nurse's Notes [facility] Name: Clark Reyes Jr Age: 54 yrs Sex: Male : 1970 Arrival Date: 01/10/2025 Time: 11:19 Bed 17 Private MD: Diagnosis: Chest pain, unspecified;Essential (primary) hypertension Presentation: 01/10 11:36 Chief complaint: Patient states: he started having chest pain and jaw pain when he woke ap3 up this morning. reports giving patient 2 of her blood pressure pills because she reported patients "bottom number of blood pressure was 118". patient currently rates his pain to be a 7/10 on the pain scale at this time. Coronavirus screen: At this time, the client does not indicate any symptoms associated with coronavirus-19. Ebola Screen: No symptoms or risks identified at this time. Initial Sepsis Screen: Does the patient meet any 2 criteria? No. Patient's initial sepsis screen is negative. Does the patient have a suspected source of infection? No. Patient's initial sepsis screen is negative. Risk Assessment: Do you want to hurt yourself or someone else? Patient reports no desire to harm self or others. Onset of symptoms was January 10, 2025. 11:36 Method Of Arrival: Ambulatory ap3 11:36 Acuity: ANH 2 ap3 Triage Assessment: 11:39 General: Appears in no apparent distress. Behavior is calm, cooperative, appropriate ap3 for age. Pain: Complains of pain in chest \\T\\ jaw Pain currently is 7 out of 10 on a pain scale. Neuro: Level of Consciousness is awake, alert, obeys commands, Oriented to person, place, time, situation. Cardiovascular: Patient's skin is warm and dry. Cardiovascular: Reports chest pain. Respiratory: Airway is patent Respiratory effort is even, unlabored, Respiratory pattern is regular, symmetrical. Historical: - Allergies: 11:39 Morphine; ap3 - Home Meds: 11:39 Baclofen Oral [Active]; ap3 - PMHx: 11:39 COVID; masses found on kidneys; neuropathy; ap3 - Immunization history:: Client reports having NOT received the Covid vaccine. - Infectious Disease History:: Denies. - Social history:: Smoking status: Patient denies any tobacco usage or history of. - Family history:: not pertinent. - Hospitalizations: : No recent hospitalization is reported. Screenin:40 [facility] ED Fall Risk Assessment (Adult) History of falling in the last 3 months, ap3 including since admission No falls in past 3 months (0 pts) Confusion or Disorientation No (0 pts) Intoxicated or Sedated No (0 pts) Impaired Gait No (0 pts) Mobility Assist Device Used No (0 pt) Altered Elimination No (0 pt) Score/Fall Risk Level 0 - 2 = Low Risk Oriented to surroundings, Maintained a safe environment, Educated pt \\T\\ family on fall prevention, incl call for assistance when getting out of bed, Assessed \\T\\ reinforced patient's understanding of fall precautions, Hourly rounding (assess needs \\T\\ fall precautionary measures) done, Used ambulatory aids as needed (educated on \\T\\ assisted with). Abuse screen: Denies threats or abuse. Nutritional screening: No deficits noted. Tuberculosis screening: No symptoms or risk factors identified. Assessment: 12:15 General: Appears in no apparent distress. Behavior is calm, cooperative. Pain: kj2 Complains of pain in chest Pain does not radiate. Pain currently is 4 out of 10 on a pain scale. Neuro: Level of Consciousness is awake, alert, obeys commands, Oriented to person, place, time, situation. Cardiovascular: Patient's skin is warm and dry. Respiratory: Airway is patent. GI: No signs and/or symptoms were reported involving the gastrointestinal system. : No signs and/or symptoms were reported regarding the genitourinary system. 13:23 Reassessment: Patient appears in no apparent distress at this time. Patient and/or kj2 family updated on plan of care and expected duration. Pain level reassessed. Patient is alert, oriented x 3, equal unlabored respirations, skin warm/dry/pink. 15:20 Reassessment: Patient appears in no apparent distress at this time. Patient and/or kj2 family updated on plan of care and expected duration. Pain level reassessed. Patient is alert, oriented x 3, equal unlabored respirations, skin warm/dry/pink. 16:42 Reassessment: Patient appears in no apparent distress at this time. Patient and/or kj2 family updated on plan of care and expected duration. Pain level reassessed. Patient is alert, oriented x 3, equal unlabored respirations, skin warm/dry/pink. 17:54 Pain: Pain began this morning. kj2 Vital Signs: 11:36 BP 133 / 88; Pulse 77; Resp 17; Temp 98.3(O); Pulse Ox 95% on R/A; Weight 95.25 kg; ap3 Height 5 ft. 4 in. ; Pain 7/10; 12:36 BP 131 / 89; Pulse 66; Resp 17; ap3 13:23 BP 137 / 81; Pulse 64; Resp 18; Pulse Ox 100% ; kj2 15:20 BP 135 / 86; Pulse 62; Resp 20; Pulse Ox 100% on R/A; kj2 16:42 BP 121 / 86; Pulse 60; Resp 18; Temp 98.1; Pulse Ox 100% ; kj2 11:36 Body Mass Index 36.05 (95.25 kg, 162.56 cm) ap3 11:36 Pain Scale: Adult ap3 ED Course: 11:19 Patient arrived in ED. al6 11:22 Rickey Carreon MD is Attending Physician. rn 11:36 Nicole Julian RN is Primary Nurse. ap3 11:38 Triage completed. ap3 11:40 EKG done, by ED staff, reviewed by Rickey Carreon MD. Patient maintains SpO2 saturation ap3 greater than 95% on room air. 11:41 Client placed on continuous cardiac and pulse oximetry monitoring. NIBP monitoring ap3 applied. cardiac monitor technician on. Pulse ox on. NIBP on. 11:41 Arm band placed on left wrist. ap3 12:15 Patient has correct armband on for positive identification. Bed in low position. Call kj2 light in reach. Provided Education on: call light. 12:36 Initial lab(s) drawn, by me, sent to lab. Missed attempt(s): 20 gauge in right ap3 antecubital area. 12:36 Missed attempt(s): 20 gauge in right wrist. ap3 12:45 Missed attempt(s): 20 gauge in right upper arm. Bleeding controlled, band aid applied, ty catheter tip intact. 12:52 Inserted saline lock: 18 gauge in left upper arm, using aseptic technique. Flushed with ty 10 mL NS. 14:50 Tereso Garcia PA is Hospitalizing Provider. rn 15:46 CT Head Brain wo Cont In Process Unspecified. EDMS 15:46 CT Aorta for Dissection In Process Unspecified. EDMS 15:49 XRAY Chest (1 view) In Process Unspecified. EDMS 17:53 No provider procedures requiring assistance completed. Patient admitted, IV remains in kj2 place. Administered Medications: 15:52 Drug: Aspirin PO Chewable Tablet 324 mg PO once; 81 mg tablets x 4 Route: PO; kj2 15:57 Follow up: Response: No adverse reaction kj2 Medication: 16:43 VIS not applicable for this client. kj2 Outcome: 14:50 Decision to Hospitalize by Provider. rn 17:53 Admitted to Tele accompanied by tech, via wheelchair, room 431, kj2 17:53 Condition: stable 17:53 Instructed on the need for admit, 17:55 Patient left the ED. kj2 Signatures: Dispatcher [employer] EDMS Rickey Carreon MD MD rn Prokisch, Amanda, RN RN ap3 Yandell, Tylor ty Jordan, Krystal, RN RN kj2 Maren Rush6
--- NOTE | 2025-01-10 15:43 | EDPHYS ---
Physician Documentation [facility] Name: Clark Reyes Jr Age: 54 yrs Sex: Male : 1970 Arrival Date: 01/10/2025 Time: 11:19 Bed 17 Private MD: ED Physician Rickey Carreon HPI: 01/10 13:32 This 54 yrs old Male presents to ER via Ambulatory with complaints of Chest rn Pain. 13:32 The patient or guardian reports chest pain that is located primarily in the chest rn diffusely. Onset: this morning. 14:10 Patient reports chest pain that started this morning, diffuse, radiates to the jaw and rn the neck and associated with nausea. No shortness of breath. Patient thought it was his blood pressure so took his spouses blood pressure medication. When checked the blood pressure his systolic was 180 or 190.. Historical: - Allergies: 11:39 Morphine; ap3 - Home Meds: 11:39 Baclofen Oral [Active]; ap3 - PMHx: 11:39 COVID; masses found on kidneys; neuropathy; ap3 - Immunization history:: Client reports having NOT received the Covid vaccine. - Infectious Disease History:: Denies. - Social history:: Smoking status: Patient denies any tobacco usage or history of. - Family history:: not pertinent. - Hospitalizations: : No recent hospitalization is reported. ROS: 14:10 Constitutional: Negative for fever, chills, and weight loss, Cardiovascular: Negative rn for palpitations, and edema Respiratory: Negative for shortness of breath, cough, wheezing, and pleuritic chest pain, Abdomen/GI: Negative for abdominal pain, nausea, vomiting, diarrhea, and constipation, MS/Extremity: Negative for injury and deformity, Skin: Negative for injury, rash, and discoloration, Neuro: Negative for headache, weakness, numbness, tingling, and seizure, Exam: 14:40 Constitutional: This is a well developed, well nourished patient who is awake, alert, rn and in no acute distress. Head/Face: Normocephalic, atraumatic. Cardiovascular: Regular rate and rhythm . No pulse deficits. Respiratory: No increased work of breathing, no retractions or nasal flaring. Abdomen/GI: Soft, non-tender, no masses MS/ Extremity: Pulses equal, no cyanosis. Neuro: Awake and alert, GCS 15 14:53 ECG was reviewed by the Attending Physician. rn Vital Signs: 11:36 BP 133 / 88; Pulse 77; Resp 17; Temp 98.3(O); Pulse Ox 95% on R/A; Weight 95.25 kg; ap3 Height 5 ft. 4 in. ; Pain 7/10; 12:36 BP 131 / 89; Pulse 66; Resp 17; ap3 13:23 BP 137 / 81; Pulse 64; Resp 18; Pulse Ox 100% ; kj2 15:20 BP 135 / 86; Pulse 62; Resp 20; Pulse Ox 100% on R/A; kj2 16:42 BP 121 / 86; Pulse 60; Resp 18; Temp 98.1; Pulse Ox 100% ; kj2 11:36 Body Mass Index 36.05 (95.25 kg, 162.56 cm) ap3 11:36 Pain Scale: Adult ap3 MDM: 11:22 Medical Screening Exam initiated rn 14:48 Differential diagnosis: acute myocardial infarction, acute pericarditis, anxiety, rn coronary artery disease costochondritis, gastroesophageal reflux disease (GERD), pleurisy, pneumothorax. HEART Score: History: Highly Suspicious (2), ECG: Non specific repolarization disturbance / LBTB / PM (1), Age: > 45 and < 65 years (1), Risk Factors: 1 or 2 risk factors (1), Troponin: < or = 1 x Normal Limit (0), Total Score = 5. The patient was given aspirin in the Emergency Department. Data reviewed: vital signs, nurses notes, lab test result(s), EKG, radiologic studies, CT scan, plain films, and as a result, I will admit patient. 14:49 Counseling: I had a detailed discussion with the patient and/or guardian regarding the rn historical points, exam findings, and any diagnostic results supporting the discharge/admit diagnosis, the presence of at least one elevated blood pressure reading (>120/80) during this emergency department visit, lab results, radiology results, the need for further work-up and treatment in the hospital. ED course: Blood pressure has improved to 130/80 with lisinopril patient took at home. Still having chest discomfort that radiates to the jaw and the neck as well as headache. CT head without acute finding. CT chest abdomen pelvis aortic evaluation negative per Dr. Addison. 01/10 11:28 Order name: Basic Metabolic Panel rn 01/10 11:28 Order name: CBC with Diff rn 01/10 11:28 Order name: NT PRO-BNP rn 01/10 11:28 Order name: PT-INR rn 01/10 11:28 Order name: Troponin HS rn 01/10 16:22 Order name: Troponin High Sensitivity EDMS 01/10 16:22 Order name: Lipid Profile EDMS 01/10 16:22 Order name: Lipid Profile EDMS 01/10 16:22 Order name: Troponin High Sensitivity EDMS 01/10 16:22 Order name: Troponin High Sensitivity EDMS 01/10 16:22 Order name: Troponin High Sensitivity EDMS 01/10 16:22 Order name: Troponin High Sensitivity EDMS 01/10 11:28 Order name: XRAY Chest (1 view) rn 01/10 11:28 Order name: CT Head Brain wo Cont rn 01/10 11:40 Order name: CT Aorta for Dissection rn 01/10 11:28 Order name: Cardiac monitoring; Complete Time: 11:41 rn 01/10 11:28 Order name: EKG - Nurse/Tech; Complete Time: 11:41 rn 01/10 11:28 Order name: IV Saline Lock; Complete Time: 13:01 rn 01/10 11:28 Order name: Labs collected and sent; Complete Time: 12:33 rn 01/10 11:28 Order name: O2 Per Protocol; Complete Time: 11:41 rn 01/10 11:28 Order name: O2 Sat Monitoring; Complete Time: 11:41 rn EC:53 Rate is 79 beats/min. Rhythm is regular. Left axis deviation noted. QRS is positive in rn lead I and negative in lead aVF. AL interval is normal. QRS interval is normal. QT interval is normal. No Q waves. T waves are Normal. No ST changes noted. Clinical impression: NSR w/ Non-specific ST/T Changes. Interpreted by me. Reviewed by me. Administered Medications: 15:52 Drug: Aspirin PO Chewable Tablet 324 mg PO once; 81 mg tablets x 4 Route: PO; kj2 15:57 Follow up: Response: No adverse reaction kj2 Disposition Summary: 01/10/25 14:50 Hospitalization Ordered Notes: Hospitalization Status: Observation rn Provider: Tereso Garcia rn Location: Telemetry/MedSurg (observation) rn Condition: Stable rn Problem: new rn Symptoms: have improved rn Bed/Room Type: Standard rn Room Assignment: 431(01/10/25 17:02) eb Diagnosis - Chest pain, unspecified rn - Essential (primary) hypertension rn Forms: - Medication Reconciliation Form rn - SBAR form rn - Leadership Thank You Letter rn Signatures: Dispatcher [employer] EDMS Rickey Carreon MD MD rn Prokisch, Amanda RN RN ap3 Sonia Doshi Krystal RN RN kj2 Corrections: (The following items were deleted from the chart) 14:11 13:32 The patient or guardian reports chest pain that is located primarily in the chest rn diffusely, rn 15:44 15:43 BASIC METABOLIC PANEL+C.LAB.BRZ ordered. EDMS EDMS 15:44 15:43 CBC+H.LAB.BRZ ordered. EDMS EDMS 15:44 15:43 PROBNP+C.LAB.BRZ ordered. EDMS EDMS 15:44 15:44 PROTIME (+INR)+COAG.LAB.BRZ ordered. EDMS EDMS 15:44 15:44 Troponin High Sensitivity+C.LAB.BRZ ordered. EDMS EDMS 15:44 15:44 Chest Single View+RAD.RAD.BRZ ordered. EDMS EDMS 15:44 15:44 Head Brain Wo Cont+CT.RAD.BRZ ordered. EDMS EDMS 15:44 15:44 Angio Aorta For Dissection+CT.RAD.BRZ ordered. EDMS EDMS 16:34 14:50 rn eb 17:02 16:34 407 eb eb
[2025-01-10] MEDS ORDERED: ASPIRIN 81 MG CHEWABLE TABLET ONE (15:44)
--- OUTSIDE RECORDS SUMMARY | 2025-01-10 15:45 | XMS REPORT | Continuity of Care Document ---
Author Name Unknown Address [address] [facility] [address] [place] [address] [facility] Address [address] [place] [address] Care Team Providers Care Industrial Accountant Name Role Phone Shyann Dimas Attending Clinician Unavailable Shyann Dimas Admitting Clinician Unavailable Payers Payer Name Policy Type Policy Number Effective Date Expirati on Date Source Allergies, Adverse Reactions, Alerts Allergy Name Allergy Type Status Severity Reaction(s) Onset Date Inactive Date Treating Clinician Comments Source morphine DA Active U [facility] 04-04 00:00: 00 [facility] Encounters Start Date/Time End Date/Time Encounter Type Admission Type Attending Clinicians Care Facility Care Department Encounter ID Source 2022-04-04 08:58:00 2022-04-04 08:58:00 Outpatient Shyann Dimas [facility]Y [id number] [address] [facility]
[2025-01-10 15:52] LABS: Anion Gap 4.9 mEq/L (5.0-15.0); Potassium 3.9 mEq/L (3.5-5.1); Troponin High Sensitivity 4.6 pg/mL (<58.9)
--- NOTE | 2025-01-10 15:54 | RAD REPORT ---
EXAMINATION: Head Brain Wo Cont CLINICAL INDICATION: Male, 54 years old.headache, HTN TECHNIQUE: Axial CT images from the skull base to the vertex without intravenous contrast. Coronal an d sagittal reformatted images were created from the data set. One or more of the following dose reduction techniques were used: Automated exposure control, adjustment of the mA and/or kV according to patient size, and/or iterative reconstruction. Unless otherwise specified, incidental findings do not require dedicated imaging follow-up. [id number]. COMPARISON: No prior exam. FINDINGS: INTRACRANIAL: No acute intracranial hemorrhage. No hydrocephalus. No mass effect or midline shift. No significant white matter disease. VASCULATURE: No visualized abnormalities in the arteries or dural venous sinuses. SCALP/SKULL: No calvarial fracture identified. No acute soft tissue abnormality. SINUSES: The visualized paranasal sinuses are mostly clear. No significant mastoid fluid. IMPRESSION: No acute intracranial abnormality.
--- NOTE | 2025-01-10 15:54 | RAD REPORT ---
EXAM: Chest Single View HISTORY: 54 years Male CHEST PAIN COMPARISON: 11/17/2020 FINDINGS: LUNGS/PLEURA: The lungs are clear. No pleural effusions or pneumothorax. No pulmonary edema. CARDIAC/MEDIASTINUM: The cardiac silhouette is within normal limits. UPPER ABDOMEN: No significant abnormality. BONES: No acute abnormality. LINES/TUBES/OTHER: N/A IMPRESSION: No evidence of acute cardiopulmonary disease. No significant change from prior.
--- NOTE | 2025-01-10 16:13 | RAD REPORT ---
EXAM: Angio Aorta For Dissection CLINICAL INDICATION: Male, 54 years chest pain, HTN TECHNIQUE: CTA of the aorta was obtained including the chest, abdomen and pelvis, with IV contrast, a s per department protocol. Axial, sagittal and coronal reconstructions were obtained. Post-processing was applied at the acquisition scanner with concurrent physician supervision which in cludes 3D reconstructions, MIPs, volume rendered images and/or shaded surface rendering. One or more of the following dose reduction techniques were used: Automated exposure control, adjustment of the mA and/or kV according to the patient size, and/or iterative reconstruction. Unless otherwise specified, incidental findings do not require dedicated imaging follow-up. [id number]. COMPARISON: No prior exam. FINDINGS: ---THORAX--- LOWER NECK AND CHEST WALL: Visualized thyroid gland and soft tissues are normal. LUNGS AND AIRWAYS: Airways are clear. No evidence of airspace or interstitial process.No dominant or clearly suspicious nodule identified. PLEURA: No pleural effusion. No pneumothorax. MEDIASTINUM AND LYMPH NODES: No mediastinal mass or fluid collection. Normal size mediastinal, hilar, and axillary lymph nodes. Mild distal esophageal thickening. THORACIC AORTA: No thoracic aortic aneurysm. PULMONARY ARTERIES: Caliber is within normal limits. HEART: Normal heart size. No coronary calcifications.No significant pericardial effusion. ---ABDOMEN/PELVIS--- UPPER GI: No significant abnormality. LIVER: Hepatic steatosis, but otherwise unremarkable. GALLBLADDER/BILE DUCTS: No biliary ductal dilatation.? PANCREAS: No mass, ductal dilation, or dangelo-pancreatic fluid. SPLEEN: Unremarkable. ADRENALS: No adrenal masses. KIDNEYS AND URETERS: No hydronephrosis.No suspicious renal mass.Nonobstructing renal calculi.No urete ral calculi. ABDOMINAL AORTA AND OTHER VESSELS: Normal caliber aorta and IVC. PERITONEUM: No abnormal free fluid. No free air. LYMPH NODES: No pathologic lymphadenopathy. ABDOMINAL WALL: Small fat containing umbilical hernia. SMALL BOWEL/COLON: Small bowel has normal course and caliber. No colonic wall thickening or pericolon ic inflammatory changes.Normal appendix. Mild diverticulosis without diverticulitis. Mild formed colonic stool burden. URINARY BLADDER: Underdistended but grossly unremarkable. REPRODUCTIVE ORGANS: No pathologic process. ---COMBINED--- MUSCULOSKELETAL: No acute or suspicious osseous abnormality. ADDITIONAL FINDINGS: None. IMPRESSION: No aortic aneurysm or dissection. No acute or significant abnormalities in the chest, abdomen, or pel vis. Incidental findings as noted above.
--- NOTE | 2025-01-10 16:22 | P.HP ---
Certification for Inpatient With expected LOS: <2 Midnights Patient will require the following post-hospital care: None Practitioner: I am a practitioner with admitting privileges, knowledge of patient current condition, hospital course, and medical plan of care. Services: Services provided to patient in accordance with Admission requirements found in Title 42 Section 412.3 of the Code of Federal Regulations Patient History Date of Service: 01/10/25 Reason for admission: Chest pain History of Present Illness: 54 year old patient presented with chest pain, started around 8 AM this morning, located all over the chest, radiating to the neck, jaw and left arm, lasted for about 45 minutes, it was sharp and needlelike pain, felt like somebody was sitting on the chest as well, due to the pain he present to the emergency room, his initial troponin is negative, we were asked admit him for chest pain evaluation. He is complaining of on and off issues with constipation for the last 6 months, once in a while some blood in the stool as well. He had some headache this morning, that is getting slowly better. He is complaining of shortness of breath and cough for the last 1 to 2 months. He lost some weight intentionally few months back but gained some weight back again. Other than this he denies he denies any other acute complaints. No double vision or blurry vision. No nausea or vomiting. No abdominal pain. No blood in the urine. No fever. No lower extremity edema. No joint pains. Review of systems: All other 10 point review of systems are negative other than as mentioned above. Allergies and medications: Reviewed, as per [facility] EMR. Past medical history: History of brain aneurysm, treated medically as per patient. Neuropathy, takes baclofen. Past surgical history: None Social history: No smoking or alcohol or drugs Family history: Multiple family members had history of OK. Grandfather and grandmother had a history of CVA. Physical examination: Vital signs: Reviewed, as per EMR. General appearance: Alert and comfortable HEENT: Extraocular movements intact, oral mucosa moist. CVS: Normal S1-S2 Lungs: Clear to auscultation bilaterally Abdomen: Soft, bowel sounds present, no tenderness Extremities: No lower extremity edema AREA CAPTAIN: Moves all 4 extremities, no obvious focal deficits Musculoskeletal: No obvious joint swelling or tenderness Allergies morphine Allergy (Verified 11/20/12 09:43) Nausea/Vomiting Home Medications: Aspirin 325 mg PO DAILY 01/01/15 Baclofen [Lioresal*] 10 mg PO BID #60 tab 01/03/15 Hydrocodone Bit/Acetaminophen [Onley 10-325 Tablet] 1 each PO Q6HP PRN #20 tablet 01/03/15 - Past Medical/Surgical History Diabetic: No -: anurysm -: vasculitis - Family History Mother -: Heart disease, Hypertension, Diabetes Father -: Hypertension, Lung disease, Diabetes Sister -: Diabetes - Social History Alcohol use: Yes CD- Drugs: Yes Caffeine use: Yes Physical Examination - Studies Laboratory Data (last 24 hrs) 01/10/25 13:03 Sodium 139 Potassium 3.9 BUN 14 Creatinine 0.86 Glucose 91 Assessment and Plan - Plan Assessment and plan: 1. Chest pain: Initial troponin negative, chest x-ray negative, CT chest done, result pending, as per ER physician no acute findings. Will follow-up on repeat troponins, cardiology consult requested. 2. History of brain aneurysm, treated medically as per patient. 3. Constipation, blood in the stool occasionally: Need follow-up with PCP and gastroenterology, I will start him on bowel medications. 4. Neuropathy: Continue gabapentin and Onley. DVT prophylaxis: Lovenox CODE STATUS: He would like to be full code. I did discuss all the above plan with the patient and family at bedside, they all understand and agrees with the plan. - Advance Directives Does patient have a Living Will: No Does patient have a Durable POA for Healthcare: Yes
[2025-01-10] MEDS ORDERED: DOCUSATE NA/SENNA CONC 1 TAB PO PRN (16:32)
[2025-01-10 16:37] LABS: PT Prothrombin Time 11.3 SECONDS (10-13.0); Protime INR 0.99
[2025-01-10 16:45] LABS: Absolute Eosinophils 0.1 K/uL (0-0.5); Absolute Lymphocytes (CBC) 1.5 K/uL (0.7-4.9); Absolute Monocytes 0.7 K/uL (0.1-1.3); Basophils % 0.3 % (0-1.3); Eosinophils % 0.7 % (0-4.4); Hematocrit 38.8 % (39.6-49.0); Hemoglobin 13.4 g/dL (13.6-17.9); Lymphocytes % 18.4 % (15.3-44.8); MCH 29.8 pg (27.0-35.0); MCHC 34.4 g/dL (32.0-36.0); MCV 86.7 fL (80-100); MPV 9.8 fL (7.6-11.3); Monocytes % 8.7 % (3.3-12.3); Neutrophils % 71.9 % (41.7-73.7); Nucleated Red Blood Cells % 0.1 % (0-0); Platelets 266 thou/uL (152-406); RBC Red Blood Cell Count 4.48 M/uL (4.33-5.43); Red Cell Distribution Width 14.9 % (12.1-15.2)
[2025-01-10] MEDS: PANTOPRAZOLE 40MG TABLET PO SCH (17:49)
[2025-01-10] MEDS: ENOXAPARIN 40 MG/0.4 ML SQ SCH (17:50)
[2025-01-10] MEDS: POLYETHYL GLY 3350 17 GM/DOSE PO SCH (17:50)
[2025-01-10 17:53] VITALS: BMI 5038.6
[2025-01-10] MEDS: HYDROCODONE/APAP 5/325 MG TAB PO PRN (22:05)
[2025-01-10] MEDS: DIAZEPAM 5 MG TABLET PO SCH (22:06)
[2025-01-10] MEDS: BACLOFEN 10 MG TAB PO SCH (22:06)
[2025-01-11 06:39] LABS: ALT/SGPT 26 U/L (16-61); AST/SGOT 18 U/L (15-37); Albumin 3.2 g/dL (3.4-5.0); Alkaline Phosphatase 60 U/L (45-117); Anion Gap 8.3 mEq/L (5.0-15.0); BUN Blood Urea Nitrogen 22 mg/dL (7-18); Bicarbonate 28 mEq/L (21-32); Bilirubin Total 0.3 mg/dL (0.2-1.0); Globulin 3.2 g/dL (2.3-3.5); Glomerular Filtration Rate 95 ml/min (=/>90); Glucose Level 121 mg/dL (74-106); HDL Cholesterol 45 mg/dL (40-60); LDL Cholesterol, Calculated 106 mg/dL (<130); LDL Cholesterol,Calc NonReport 106; Potassium 4.3 mEq/L (3.5-5.1); Protein, Total 6.4 g/dL (6.4-8.2); Sodium Level 141 mEq/L (136-145)
[2025-01-11 06:43] LABS: Bilirubin Direct < 0.2 mg/dL (0-0.2); Bilirubin Indirect, Calculated 0.1 mg/dL (0.2-0.8)
--- NOTE | 2025-01-11 13:27 | P.PN ---
Subjective Date of Service: 01/11/25 Chief Complaint: Chest pain Subjective: No chest pain or shortness of breath. No nausea or vomiting. No abdominal pain. No obvious bleeding. Looks comfortable in the bed. Had some headache, this is on and off chronic. Objective: General appearance: Alert and comfortable CVS: Normal S1 and S2 Lungs: Clear to auscultation bilaterally Abdomen: Soft, bowel sounds present, no tenderness Extremities: No lower extremity edema Physical Examination - Vital Signs Temperature: 97.9 F Blood Pressure: 125/65 Pulse: 69 Respirations: 15 Pulse Ox (%): 95 - Studies Laboratory Data (last 24 hrs) 01/10/25 01/10/25 01/10/25 13:03 13:03 13:03 WBC 8.30 Hgb 13.4 L Hct 38.8 L Plt Count 266 PT 11.3 INR 0.99 Sodium 139 Potassium 3.9 BUN 14 Creatinine 0.86 Glucose 91 Assessment And Plan - Plan Assessment and plan: 1. Chest pain: Initial troponin negative, chest x-ray negative, CT chest neg fro acute findings - repeat troponins neg, cardiology consult requested. - Plan For stress test on Monday. 2. History of brain aneurysm, treated medically as per patient. -Chronci headaches, CT head neg 3. Constipation, blood in the stool occasionally: Need follow-up with PCP and gastroenterology -cont bowel medications. 4. Neuropathy: Continue gabapentin and [place]. 5. esophagitis and fatty liver on CT: cont PPI, f/u with PCP/ GI I did discuss all the above plan with the patient and family at bedside, they all understand and agrees with the plan.
[2025-01-11] MEDS ORDERED: DIAZEPAM 5 MG TABLET PO SCH (21:00)
[2025-01-12] MEDS: ACETAMINOPHEN 500 MG TAB PO PRN (03:44)
[2025-01-12 05:41] LABS: Absolute Eosinophils 0.2 K/uL (0-0.5); Absolute Lymphocytes (CBC) 1.8 K/uL (0.7-4.9); Absolute Monocytes 0.7 K/uL (0.1-1.3); Absolute Neutrophil 3.1 K/uL (1.8-8.0); Basophils % 0.7 % (0-1.3); Eosinophils % 2.8 % (0-4.4); Hematocrit 36.2 % (39.6-49.0); Hemoglobin 12.4 g/dL (13.6-17.9); Lymphocytes % 31.5 % (15.3-44.8); MCH 29.9 pg (27.0-35.0); MCHC 34.2 g/dL (32.0-36.0); MCV 87.5 fL (80-100); MPV 9.5 fL (7.6-11.3); Monocytes % 11.9 % (3.3-12.3); Neutrophils % 53.1 % (41.7-73.7); Nucleated Red Blood Cells % 0.2 % (0-0); Platelets 227 thou/uL (152-406); RBC Red Blood Cell Count 4.14 M/uL (4.33-5.43); Red Cell Distribution Width 15.2 % (12.1-15.2)
[2025-01-12 05:59] LABS: Anion Gap 8.1 mEq/L (5.0-15.0); Potassium 4.1 mEq/L (3.5-5.1)
--- NOTE | 2025-01-12 12:37 | P.PN ---
Subjective Date of Service: 01/12/25 Chief Complaint: Chest pain Subjective: No chest pain or shortness of breath now, had some SOB last night. No nausea or vomiting. No abdominal pain. No obvious bleeding. Looks comfortable in the bed. Objective: General appearance: Alert and comfortable CVS: Normal S1 and S2 Lungs: Clear to auscultation bilaterally Abdomen: Soft, bowel sounds present, no tenderness Extremities: No lower extremity edema Physical Examination - Vital Signs Temperature: 97.7 F Blood Pressure: 128/65 Pulse: 64 Respirations: 20 Pulse Ox (%): 94 Assessment And Plan - Plan Assessment and plan: 1. Chest pain: Initial troponin negative, chest x-ray negative, CT chest neg for acute findings - repeat troponins neg, cardiology consult requested. - Plan For stress test on Monday. 2. History of brain aneurysm, treated medically as per patient. -Chronci headaches, CT head neg 3. Constipation, blood in the stool occasionally: Need follow-up with PCP and gastroenterology -cont bowel medications. 4. Neuropathy: Continue gabapentin and [place]. 5. esophagitis and fatty liver on CT: cont PPI, f/u with PCP/ GI 6. ?OXANA: rec o/p sleep [place] I did discuss all the above plan with the patient and family at bedside, they all understand and agrees with the plan.
--- NOTE | 2025-01-12 18:42 | P.CNS ---
Date of Consult: 01/12/25 Chief Complaint: Chest pain History of Present Illness: Patient with no significant PMH presented with multiple episodes of elevated BP, headache, oral numbness, tingling and bilateral shoulder pain of the last year, lasted all day last time, BP was high in the 180s/130s, also report worsening MOYA, no palpitations, no syncope. Allergies morphine Allergy (Verified 11/20/12 09:43) Nausea/Vomiting Home medications list reviewed: Yes Home Medications: Aspirin 325 mg PO DAILY 01/01/15 Baclofen [Lioresal*] 10 mg PO BID #60 tab 01/03/15 Hydrocodone Bit/Acetaminophen [[place] 10-325 Tablet] 10 - 325 each PO Q6HP PRN 01/10/25 diazePAM [Diazepam] 10 mg PO BEDTIME 01/10/25 - Past Medical/Surgical History Diabetic: No -: anurysm -: vasculitis - Family History Mother Medical History: Heart disease, Hypertension, Diabetes Father Medical History: Hypertension, Lung disease, Diabetes Sister Medical History: Diabetes - Social History Smoking Status: Unknown if ever smoked Alcohol use: No CD- Drugs: No Caffeine use: No Place of Residence: Home Review of Systems 10-point ROS is otherwise unremarkable Physical Examination Temp Pulse Resp BP Pulse Ox 97.9 F 74 20 140/76 98 01/12/25 16:00 01/12/25 16:00 01/12/25 16:00 01/12/25 16:00 01/12/25 16:00 General: Alert, In no apparent distress HEENT: Atraumatic, PERRLA, Mucous membr. moist/pink, EOMI, Sclerae nonicteric Neck: Supple, 2+ carotid pulse no bruit, No LAD, Without JVD or thyroid abnormality Respiratory: Clear to auscultation bilaterally, Normal air movement Cardiovascular: Regular rate/rhythm, Normal S1 S2 Gastrointestinal: Normal bowel sounds, No tenderness Musculoskeletal: No tenderness Integumentary: No rashes Neurological: Normal gait, Normal speech, Normal tone, Normal affect Lymphatics: No axilla or inguinal lymphadenopathy - Problems (1) Chest pain Onset Date: 01/02/15 Current Visit: No Status: Acute Plan: NPO after midnight for stress test and echo in am continue to monitor on tele.
[2025-01-13] MEDS: ONDANSETRON 4 MG/2 ML VIAL IV PRN (08:01)
[2025-01-13] MEDS ORDERED: REGADENOSON 0.4 MG/5 ML SYR IV ONE (09:54)
--- NOTE | 2025-01-13 10:48 | RAD REPORT ---
EXAM :Rest Stress Cardiac Imaging CLINICAL HISTORY: Chest pain TECHNIQUE: Rest images: 9.4 mCi technetium 99m sestamibi administered intravenously. Stress images: 28.9 mCi of technetium 99m sestamibi administered intravenously. Cardiac SPECT images obtained COMPARISON: None. FINDINGS: The entire left ventricular myocardium demonstrates homogeneous radiotracer uptake on stress images The entire left ventricular myocardium demonstrates homogeneous radiotracer uptake on rest images Left ventricular ejection fraction equals 64% IMPRESSION: No evidence of a myocardial perfusion defect
--- NOTE | 2025-01-13 11:35 | ECHO ---
HEIGHT: 5 ft 4 in WEIGHT: 209 lb 0 oz DATE OF STUDY: 01/13/[address]: Tereso Garcia 2-DIMENSIONAL: YES M.MODE: YES DOPPLER: YES COLOR FLOW: YES TDS: NO PORTABLE: YES DEFINITY: NO BUBBLE STUDY: NO DIAGNOSIS: CONGESTIVE HEART FAILURE CARDIAC HISTORY: CATHERIZATION:YES SURGERY: NO PROSTHETIC VALVE: NO PACEMAKER: NO MEASUREMENTS (cm) DIASTOLIC (NORMALS) SYSTOLIC (NORMALS) IVSd 1.4 (0.6-1.2) LA Diam 2.7 (1.9-4.0) LVEF 60-65% LVIDd 3.9 (3.5-5.7) LVIDs 3.1 (2.0-3.5) %FS 20% LVPWd 1.4 (0.6-1.2) Ao Diam 3.1 (2.0-3.7) 2 DIMENSIONAL ASSESSMENT: RIGHT ATRIUM: NORMAL LEFT ATRIUM: NORMAL RIGHT VENTRICLE: NORMAL LEFT VENTRICLE: NORMAL TRICUSPID VALVE: TRACE TRICUSPID REGURGITATION MITRAL VALVE: NORMAL PULMONIC VALVE: NORMAL AORTIC VALVE: NORMAL PERICARDIAL EFFUSION: NONE AORTIC ROOT: NORMAL LEFT VENTRICULAR WALL MOTION: NORMAL. DOPPLER/COLOR FLOW: NORMAL. COMMENTS: 1. NORMAL LEFT VENTRICULAR SYSTOLIC FUNCTION. LEFT VENTRICULAR EJECTION FRACTION 60-65%. NORMAL WALL MOTION. 2. NORMAL DIASTOLIC FUNCTION. TECHNOLOGIST: IVELISSE REYNOSO
--- NOTE | 2025-01-13 11:36 | EKG ---
Test Date: 2025-01-10 Test Time: 11:28:43 Instrument Operator: ALP MEASUREMENT RESULTS: Intervals: Rate: 79 WY: 154 QRSD: 98 QT: 362 QTc: 415 [place]: P: 55 WY: 154 QRS: -53 T: 25 INTERPRETIVE STATEMENTS: Normal sinus rhythm Left axis deviation Abnormal ECG Compared to ECG 11/17/2020 11:55:30 No significant changes Electronically Signed On 01-13-25 11:32:51 CDT by Geo Singh
--- NOTE | 2025-01-13 12:33 | TREADPHA ---
DX: CHEST PAIN Date of Study: 01/13/2025 Ht: 5' 4 " Wt: 209 lb 0 oz Consulting Physician: MURPHY MEDICATIONS: NORCO, LIORESAL, VALIUM, LOVENOX, SENOKOT-S, GLYCOLAX HISTORY: 54 YEAR OLD MALE WITH COMPLAINTS OF CHEST PAIN AND JAW PAIN. HISTORY OF NEUROPATHY. PHYSICIAL EXAMINATION: RESTING B.P.: 127/88 RESTING H.R.: 63 RESTING EKG: SINUS RHYTHM. PROTOCOL: LEXISCAN EXERCISE TIME: 3:30 B.P. AT [place] STRESS: 134/80 IMPRESSION: LEXISCAN INJECTED. CARDIOLITE INJECTED. SEE NUCLEAR MEDICINE REPORT. COMPLAINTS OF CHEST PRESSURE. NO VENTRICULAR OR SUPRAVENTRICULAR TACHYCARDIA NOTED. NO CHEST PAIN. COFFEE PROVIDED.
[2025-01-13 12:42] VITALS: BP 141/91; TEMP 98.1
[2025-01-13 12:48] VITALS: O2SAT 97
--- NOTE | 2025-01-13 13:20 | P.DS ---
Admission Date: 01/10/25 Discharge Date: 01/13/25 Disposition: DC HOME/HOME HEALTH CARE Discharge Condition: GOOD Reason for Admission: Chest pain Hospital Course: Discharge diagnosis: 1. Chest pain: Initial troponin negative, chest x-ray negative, CT chest neg for acute findings - repeat troponins neg, cardiology consult requested. - had echo and stress test today, EF 60-65%, stress test neg 2. History of brain aneurysm, treated medically as per patient. -Chronci headaches, CT head neg 3. Constipation, blood in the stool occasionally: Need follow-up with PCP and gastroenterology -cont bowel medications. 4. Neuropathy: Continue gabapentin and [place]. 5. esophagitis and fatty liver on CT: cont PPI, f/u with PCP/ GI 6. ?OXANA: rec o/p sleep study, f/u with pulmonary 7. Anemia: Seems somewhat chronic, follow-up with PCP and GI as an outpatient. Subjective: No chest pain or shortness of breath now, had some SOB last night. No nausea or vomiting. No abdominal pain. No obvious bleeding. Looks comfortable in the bed. Objective: General appearance: Alert and comfortable CVS: Normal S1 and S2 Lungs: Clear to auscultation bilaterally Abdomen: Soft, bowel sounds present, no tenderness Extremities: No lower extremity edema 54-year-old patient admitted with chest pain, troponins negative and Ct chest negative for acute pathology, cardiology was consulted, he had an echo and stress test, echo showed 60 to 65% EF, stress test is negative, cardiology cleared to discharge, he has esophagitis on the CT scan, started him on PPI, advised to follow-up with GI as an outpatient. Family noticed that he is snoring at nighttime, there was some issues with breathing once in a while at nighttime, I think he has a sleep apnea, strongly advised to follow-up with pulmonary clinic and get sleep study as an outpatient. When I see the patient he is doing well without any acute problems, cardiology cleared him to discharge, otherwise no other acute issues going on so I am planning to discharge him to go home. I did discuss all the above plan with the patient and family at bedside, they all understand and agrees with the plan. Vital Signs/Physical Exam: Temp Pulse Resp BP Pulse Ox 98.1 F 65 16 141/91 H 97 01/13/25 12:00 01/13/25 12:00 01/13/25 12:00 01/13/25 12:00 01/13/25 12:00 Laboratory Data at Discharge: WBC 5.80 thou/uL (4.3-10.9) 01/12/25 05:03 Hgb 12.4 g/dL (13.6-17.9) L 01/12/25 05:03 Hct 36.2 % (39.6-49.0) L 01/12/25 05:03 Plt Count 227 thou/uL (152-406) 01/12/25 05:03 PT 11.3 SECONDS (10-13.0) 01/10/25 13:03 INR 0.99 01/10/25 13:03 Sodium 140 mEq/L (136-145) 01/12/25 05:03 Potassium 4.1 mEq/L (3.5-5.1) 01/12/25 05:03 BUN 17 mg/dL (7-18) 01/12/25 05:03 Creatinine 0.84 mg/dL (0.70-1.30) 01/12/25 05:03 Glucose 117 mg/dL (74-106) H 01/12/25 05:03 Total Bilirubin 0.3 mg/dL (0.2-1.0) 01/11/25 06:06 AST 18 U/L (15-37) 01/11/25 06:06 ALT 26 U/L (16-61) 01/11/25 06:06 Alkaline Phosphatase 60 U/L (45-117) 01/11/25 06:06 Triglycerides 109 mg/dL (<150) 01/11/25 06:06 Cholesterol 173 mg/dL (<200) 01/11/25 06:06 HDL Cholesterol 45 mg/dL (40-60) 01/11/25 06:06 Cholesterol/HDL Ratio 3.84 01/11/25 06:06 Home Medications: Aspirin 325 mg PO DAILY 01/01/15 Baclofen [Lioresal*] 10 mg PO BID #60 tab 01/03/15 Hydrocodone Bit/Acetaminophen [[place] 10-325 Tablet] 10 - 325 each PO Q6HP PRN 01/10/25 diazePAM [Diazepam] 10 mg PO BEDTIME 01/10/25 Pantoprazole [Protonix Tab*] 40 mg PO ACB #30 tab 01/13/25 New Medications: Pantoprazole [Protonix Tab*] 40 mg PO ACB #30 tab Diet: Regular Activity: Ad jaguar Followup: Richard Charlton MD [ACTIVE - CAN ADMIT] - 1 Week (possible sleep apnea) Ileana Fischer DO, DO [Primary Care Provider] - 1 Week (f/u in 1 week with CBC and CMP. GI and pulmonary follow up re: esophagitis and possible sleep apnea) Brown Ang MD [ACTIVE - CAN ADMIT] - 1 Week (esophagitis on CT scan, chest pain) Time spent managing pt's care (in minutes): 33
== END 2025-01-13 13:55 | disposition home health service (06) | DRG 392 ==
LOC: ER 11:20 → 4TH 16:17
PROVIDERS: ADMIT Hospitalist; ATTEND Hospitalist
DX: K20.90 Esophagitis, unspecified without bleeding (principal); D64.9 Anemia, unspecified; K76.0 Fatty (change of) liver, not elsewhere classified; G47.33 Obstructive sleep apnea (adult) (pediatric); G62.9 Polyneuropathy, unspecified; K59.00 Constipation, unspecified; R07.9 Chest pain, unspecified; Z86.79 Personal history of other diseases of the circulatory system
CPT/HCPCS: 36415; 70450; 71045; 71275; 74175; 78452; 80048; 80061; 80076; 83880; 84484; 85025; 85610; 93005; 93017; 93306; 99285; A9500; J1650; J2405; J2785; Q9967